=== PATIENT | male | born 1960 | race Caucasian/White ===

== ENCOUNTER 2023-01-12 10:27 | Emergency (ER) | payer OTHER ==
[2023-01-12] MEDS ORDERED: Lidocaine 1% (PF) 30 ML VIAL ONE (10:55)
[2023-01-12] MEDS ORDERED: Bacitracin 1 PK ONE (11:29)
[2023-01-12] MEDS ORDERED: Boostrix 0.5 ML (Tdap) VIAL (>/=7 yrs of age) ONE (11:36)
== END 2023-01-12 11:35 | disposition home or self-care (01) ==
LOC: NAV ERS 10:27
DX: S01.81XA Laceration without foreign body of other part of head, initial encounter (principal); E03.9 Hypothyroidism, unspecified; W22.8XXA Striking against or struck by other objects, initial encounter
CPT/HCPCS: 12013; 90715; J2001